=== PATIENT | female | born 1995 ===

== ENCOUNTER 2022-09-05 15:47 | Outpatient (CLI) | payer OTHER | END 2022-09-05 16:26 | disposition home or self-care (01) | LOC: PRENATAL 15:47 | PROVIDERS: ATTEND Obstetrics & Gynecology Maternal & Fetal Medicine | DX: O35.9XX0 Maternal care for (suspected) fetal abnormality and damage, unspecified, not applicable or unspecified (principal); O35.3XX0 Maternal care for (suspected) damage to fetus from viral disease in mother, not applicable or unspecified; O36.8199 Decreased fetal movements, unspecified trimester, other fetus ==

== ENCOUNTER 2022-09-19 14:45 | Inpatient (IN) | payer OTHER ==
[~2022-09-19] VITALS: Ht 152.4 cm; Wt 3.6 kg
[2022-09-26] MEDS ORDERED: FOLIC ACID0.8 M1 PO (00:17)
[2022-09-26] MEDS ORDERED: PRENATAL TABLE1 EAC1 PO (00:17)
== END 2022-09-29 11:44 | disposition home or self-care (01) | DRG 788 ==
LOC: OB/GYN 09-26 00:14 → LDR 09-26 00:14 → O/R 09-26 08:12 → OB/GYN 09-26 10:13
PROVIDERS: ADMIT Obstetrics & Gynecology; ATTEND Obstetrics & Gynecology
PROC: 4A1HXCZ Monitoring of Products of Conception, Cardiac Rate, External Approach (ICD-10-PCS; 2022-09-26)
PROC: 10D00Z1 Extraction of Products of Conception, Low, Open Approach (ICD-10-PCS; principal; 2022-09-26 10:30)
DX: O33.8 Maternal care for disproportion of other origin (principal); O62.1 Secondary uterine inertia; Z3A.39 39 weeks gestation of pregnancy; Z37.0 Single live birth; Z20.822 Contact with and (suspected) exposure to COVID-19